=== PATIENT | female | born 1990 | race Caucasian/White ===

== ENCOUNTER → 2018-02-21 | Outpatient (CLI) | payer BC ==
--- NOTE | 2018-02-21 09:58 | CT ---
EXAMINATION TYPE: CT brain wo con DATE OF EXAM: 02/21/2018 COMPARISON: None HISTORY: Headache CT DLP: 926.50 mGycm. Automated Exposure Control for Dose Reduction was Utilized. TECHNIQUE: CT scan of the head is performed without contrast. FINDINGS: There is no acute intracranial hemorrhage, mass effect, or midline shift identified. Bernardo e White matter demyelination change is present in the periventricular locations. Suspect slight infer ior displacement of the cerebellar tonsil on the right. The ventricles and sulci are within normal li mits in size. The globes are intact and the visualized sinuses are clear. IMPRESSION: No acute intracranial hemorrhage, mass effect, or midline shift is seen. Nonspecific whi te matter demyelination, consider MRI. Minimal inferior cerebellar tonsillar ectopia.
== END | disposition home or self-care (01) ==
LOC: RADCTMAIN 06:53 → MERGE 07:00
PROVIDERS: ATTEND Family Medicine
DX: G37.9 Demyelinating disease of central nervous system, unspecified (principal)
CPT/HCPCS: 70450

== ENCOUNTER → 2018-04-05 | Outpatient (CLI) | payer BC ==
--- NOTE | 2018-04-05 11:30 | MR ---
EXAMINATION TYPE: MR brain wo/w con DATE OF EXAM: 04/05/2018 COMPARISON: CT brain 02/21/2018 HISTORY: Abnormal CT, Demyelination, headache TECHNIQUE: Multiplanar, multisequence images of the brain and brainstem is performed without and with IV contras t, utilizing 5.5 mL intravenous Gadavist . FINDINGS: Diffusion weighted images demonstrate no evidence of a recent infarct or other diffusion ab normality. There is no extra-axial fluid collection or significant white matter signal abnormality. The ventricular system and cisternal spaces are normal in size and appearance. The brain volume is age appropriate. Midline structures demonstrate normal morphology, only minimal inferior cerebellar tonsillar ectopia as seen on CT, only approximately 1 mm. The craniocervical junction appears within normal limits. P ost contrast images demonstrate no abnormal enhancement. The dural venous sinuses appear patent. The visualized sinuses are remarkable for inflammatory change in the ethmoid air cells, minimal mucosal d isease in the maxillary sinuses. And the globes are intact. IMPRESSION: Normal brain MRI, minimal inferior cerebellar tonsillar ectopia. Heterogeneous appearance of white matter density seen on CT likely technical. Mild sinus disease.
== END ==
LOC: RADMRIMAIN 08:38
PROVIDERS: ATTEND Psychiatry & Neurology Neurology
DX: R94.02 Abnormal brain scan (principal)
CPT/HCPCS: 70553; A9585